=== PATIENT | male | born 1950 | race Caucasian/White ===

== ENCOUNTER 2023-10-01 09:17 | Emergency (ER) | payer MEDICARE ==
[2023-10-01] MEDS ORDERED: HYDROcodone/Acetaminophen 5/325 mg Tablet ONE (09:48)
== END 2023-10-01 10:37 | disposition home or self-care (01) ==
LOC: CSHERS 09:17
DX: M54.50 Low back pain, unspecified (principal); E11.9 Type 2 diabetes mellitus without complications; I10 Essential (primary) hypertension
CPT/HCPCS: 99283

== ENCOUNTER 2023-10-04 10:19 | Outpatient (CLI) | payer MEDICARE | END 2023-10-04 10:20 | disposition home or self-care (01) | LOC: CSHRAD 10:19 | PROVIDERS: ATTEND Family Medicine | DX: M54.50 Low back pain, unspecified (principal); M47.816 Spondylosis without myelopathy or radiculopathy, lumbar region | CPT/HCPCS: 72100 ==

== ENCOUNTER 2023-10-04 10:50 | Outpatient (CLI) | payer MEDICARE ==
[2023-10-04 12:13] LABS: #Basophils 0.02 10x3/uL (0.0-0.2); #Eosinphils 0.03 10x3/uL (0.0-0.5); #Monocytes 0.64 10x3/uL (0.0-1.1); #Neutrophils 5.82 10x3/uL (1.5-8.4); %Basophils 0.3 % (0.0-2.0); %Eosinophils 0.4 % (0.0-6.0); %Lymphocytes 12.2 % (18.0-47.0); %Monocytes 8.6 % (0.0-10.0); %Neutrophils 78.1 % (40.0-75.0); Hematocrit 40.9 % (38.8-50.0); Hemoglobin 13.7 g/dL (13.5-17.5); Mean Corpuscular HGB CONC 33.5 g/dL (32.0-36.0); Mean Corpuscular Hemoglobin 31.1 pg (27.0-33.0); Mean Corpuscular Volume 92.7 fL (81.2-95.1); Platelet Count 256 10x3/uL (150-450); RBC Distribution Width 13.2 % (11.5-14.5); Red Blood Cell (RBC) Count 4.41 10x6/uL (4.32-5.72); White Blood Cell (WBC) Count 7.5 10x3/uL (3.5-10.5)
[2023-10-04 12:28] LABS: Anion Gap 16 mmol/L (10-20); BUN (Urea Nitrogen) 12 mg/dL (8.4-25.7); Calc. Creatinine Clearance 0 mL/min (70-130); Calcium 10.1 mg/dL (7.8-10.44); Carbon Dioxide 26 mmol/L (23-31); Chloride 103 mmol/L (98-107); Estimated GFR 89; Glucose 126 mg/dL (83-110); Potassium 4.5 mmol/L (3.5-5.1); Sodium 140 mmol/L (136-145)
== END 2023-10-04 10:51 | disposition home or self-care (01) ==
LOC: CSHLAB 10:50
PROVIDERS: ATTEND Surgery
DX: Z01.818 Encounter for other preprocedural examination (principal); K40.90 Unilateral inguinal hernia, without obstruction or gangrene, not specified as recurrent
CPT/HCPCS: 80048; 85025; 93005; 93010

== ENCOUNTER 2023-10-11 06:50 | Day surgery (SDC) | payer MEDICARE ==
[2023-10-04 11:41] VITALS: BMI 30.6
[2023-10-11] MEDS ORDERED: Bupivacaine 0.25% HCL 30 ML VIAL ONE (07:46)
[2023-10-11] MEDS ORDERED: EPINEPHrine 1 MG/ML VIAL ONE (07:46)
[2023-10-11] MEDS ORDERED: Lidocaine 1% PF 5 ML VIAL ONE (08:47)
[2023-10-11] MEDS ORDERED: PROPOFOL 20 ML ONE (08:47)
[2023-10-11] MEDS ORDERED: fentaNYL 50 mcg/mL 1 mL Vial ONE ×3 (08:47→11:12)
[2023-10-11] MEDS ORDERED: Rocuronium Bromide 10 MG/ML (10ML VIAL) ONE (08:47)
[2023-10-11] MEDS ORDERED: CEFAZOLIN 2 GM VIAL ONE (08:51)
[2023-10-11] MEDS ORDERED: SUGAMMADEX SODIUM 200 MG/2 ML VIAL ONE (09:53)
[2023-10-11] MEDS ORDERED: Ondansetron PF 4 MG/2 ML Vial ONE (10:29)
[2023-10-11] MEDS ORDERED: HYDROcodone/Acetaminophen 5/325 mg Tablet ONE (11:37)
== END 2023-10-11 12:20 | disposition home or self-care (01) ==
LOC: CSHSDC 06:50
PROVIDERS: ATTEND Surgery
PROC: 0YUA4JZ Supplement Bilateral Inguinal Region with Synthetic Substitute, Percutaneous Endoscopic Approach (ICD-10-PCS; principal; 2023-10-11)
DX: K40.20 Bilateral inguinal hernia, without obstruction or gangrene, not specified as recurrent (principal); E11.9 Type 2 diabetes mellitus without complications; I48.91 Unspecified atrial fibrillation; I10 Essential (primary) hypertension; E78.5 Hyperlipidemia, unspecified; Z79.84 Long term (current) use of oral hypoglycemic drugs; Z79.82 Long term (current) use of aspirin; Z79.899 Other long term (current) drug therapy; Z90.89 Acquired absence of other organs
CPT/HCPCS: 49650; C1781 ×2; J0171; J0665; J2405; J2704; J3010

== ENCOUNTER 2023-11-17 09:01 | Emergency (ER) | payer MEDICARE | END 2023-11-17 10:16 | disposition home or self-care (01) | LOC: CSHERS 09:01 | DX: U07.1 COVID-19 (principal); E11.9 Type 2 diabetes mellitus without complications; E78.00 Pure hypercholesterolemia, unspecified; I10 Essential (primary) hypertension; Z55.6 Problems related to health literacy | CPT/HCPCS: 99283 ==